=== PATIENT | male | born 1965 | race Caucasian/White ===

== ENCOUNTER 2022-05-10 16:49 | Observation (INO) | payer BC ==
[2022-05-10 19:06] VITALS: BMI 20.7
[2022-05-10] MEDS ORDERED: Ondansetron PF 4 MG/2 ML Vial IVP PRN (23:09)
[2022-05-10] MEDS ORDERED: Bisacodyl 5 MG TAB PO PRN (23:09)
[2022-05-10] MEDS ORDERED: Senokot S 8.6-50 MG TAB PO PRN (23:09)
[2022-05-10] MEDS ORDERED: HYDROcodone/Acetaminophen 5/325 mg Tablet PO PRN (23:09)
[2022-05-10] MEDS ORDERED: Acetaminophen 325 MG TAB PO PRN (23:09)
[2022-05-10] MEDS ORDERED: Ondansetron ODT 4 MG TAB PO PRN (23:09)
[2022-05-10 23:40] LABS: Hemoglobin A1c 4.3 % (4.0-6.0)
[2022-05-10 23:47] LABS: Troponin I Less than 0.010 ng/mL (< 0.028)
[2022-05-11] MEDS ORDERED: Lorazepam 1 MG TAB PO PRN (00:02)
[2022-05-11] MEDS ORDERED: chlordiazePOXIDE HCl 25 MG CAP PO SCH (00:15)
[2022-05-11] MEDS ORDERED: Electrolyte Replacement Protocol 1 EACH FS SCH (00:15)
[2022-05-11] MEDS ORDERED: Lisinopril 10 MG TAB PO SCH (00:30)
[2022-05-11] MEDS: Thiamine HCl 200 MG/2 ML VIAL SLOW IVP SCH ×2 (00:57→23:29)
[2022-05-11 02:42] LABS: #Eosinphils 0.3 thou/uL (0.0-0.7); #Lymphocytes 1.3 thou/uL (1.20-3.40); #Monocytes 0.7 thou/uL (0.11-0.59); #Neutrophils 3.5 thou/uL (1.40-6.50); %Basophils 0.7 % (0.0-1.0); %Eosinophils 5.1 % (0.0-10.0); %Lymphocytes 21.9 % (21.0-51.0); %Monocytes 12.5 % (0.0-10.0); %Neutrophils 59.9 % (42.0-75.0); Hemoglobin 15.3 g/dL (14.0-18.0); Mean Corpuscular HGB CONC 34.4 g/dL (32.0-36.0); Mean Corpuscular Hemoglobin 36.2 pg (27.0-31.0); Mean Platelet Volume 6.9 fL (7.4-10.4); Platelet Count 152 thou/uL (130-400); RBC Distribution Width 10.6 % (11.5-14.5); Red Blood Cell (RBC) Count 4.23 mill/uL (4.70-6.10); White Blood Cell (WBC) Count 5.8 thou/uL (4.8-10.8)
[2022-05-11 02:50] LABS: Bilirubin, Direct 0.7 mg/dL (0.1-0.3); Magnesium 1.8 mg/dL (1.6-2.6); Phosphorus 3.2 mg/dL (2.3-4.7)
[2022-05-11 02:53] LABS: Troponin I 0.013 ng/mL (< 0.028)
[2022-05-11 03:10] LABS: ALT (SGPT) 20 U/L (8-55); AST (SGOT) 39 U/L (5-34); Albumin 3.7 g/dL (3.5-5.0); Alkaline Phosphatase 75 U/L (40-110); Anion Gap 14 mmol/L (10-20); BUN (Urea Nitrogen) 6 mg/dL (8.4-25.7); Bilirubin, Total 4.1 mg/dL (0.2-1.2); Calc. Creatinine Clearance 99 mL/min (70-130); Calcium 8.7 mg/dL (7.8-10.44); Carbon Dioxide 25 mmol/L (22-29); Chloride 101 mmol/L (98-107); Cholesterol 175 mg/dl (< 200 Desired); Estimated GFR 105; Globulin 2.5 g/dL (2.4-3.5); Glucose 90 mg/dL (70-105); HDL Cholesterol 86 mg/dL (>60 Neg Risk); LDL Cholesterol, Calculated 76 mg/dL; Potassium 3.8 mmol/L (3.5-5.1); Protein, Total 6.2 g/dL (6.0-8.3); Sodium 136 mmol/L (136-145); Triglycerides 67 mg/dL (Less than 150)
[2022-05-11] MEDS ORDERED: Magnesium 2 GM/50 ML(in water) 2 GM in Premix Bag 1 BAG IVPB SCH (08:00)
[2022-05-11 08:13] LABS: Amphetamine Not Detected (NotDetected); Barbiturates Screen Not Detected (NotDetected); Benzodiazepine Screen Not Detected (NotDetected); Cocaine Metabolite Screen Not Detected (NotDetected); Methadone Not Detected (NotDetected); Methamphetamine Not Detected (NotDetected); Opiate Screen Not Detected (NotDetected); Oxycodone Screen Not Detected (NotDetected); Phencyclidine (PCP) Not Detected (NotDetected); THC/Cannabinoid Screen Not Detected (NotDetected); Tricyclic Screen Not Detected (NotDetected)
[2022-05-11] MEDS ORDERED: Enoxaparin Sodium 30 MG/0.3 ML SYRINGE SC SCH (09:00)
[2022-05-11] MEDS ORDERED: ADENOSINE 60 MG/20 ML VIAL ONE (09:21)
[2022-05-11 11:47] LABS: Syphilis Antibody Nonreactive (Nonreactive); Syphilis Antibody Index 0.05 S/CO (<1.00 Non-Reactive)
[2022-05-11] MEDS: Aspirin Chewable 81 MG TAB PO SCH (13:47)
[2022-05-11] MEDS: Folic Acid 1 MG TAB PO SCH (13:47)
[2022-05-11] MEDS: chlordiazePOXIDE HCl 25 MG CAP PO SCH ×3 (13:47→20:48)
[2022-05-11] MEDS: Lisinopril 10 MG TAB PO SCH (13:48)
[2022-05-11] MEDS: Enoxaparin Sodium 40 MG/0.4 ML SYRINGE SC SCH (13:50)
[2022-05-11] MEDS: Multivit, Therapeutic 1 TAB PO SCH (18:54)
[2022-05-12] MEDS ORDERED: Lorazepam 1 MG TAB PO PRN (00:02)
[2022-05-12 05:13] LABS: Magnesium 2.1 mg/dL (1.6-2.6)
[2022-05-12 07:52] VITALS: TEMP 98
[2022-05-12] MEDS: Folic Acid 1 MG TAB PO SCH (09:51)
[2022-05-12] MEDS: Enoxaparin Sodium 40 MG/0.4 ML SYRINGE SC SCH ×2 (09:51→10:11)
[2022-05-12] MEDS: Aspirin Chewable 81 MG TAB PO SCH (09:51)
[2022-05-12] MEDS: Multivit, Therapeutic 1 TAB PO SCH (09:51)
[2022-05-12] MEDS: chlordiazePOXIDE HCl 25 MG CAP PO SCH (09:52)
[2022-05-12 09:57] VITALS: BP 103/71
[2022-05-12] MEDS: Lisinopril 10 MG TAB PO SCH (09:57)
[2022-05-13] MEDS ORDERED: Lorazepam 1 MG TAB PO PRN (00:02)
[2022-05-13] MEDS ORDERED: FLU VACC QS2022-23(6MOS UP)/PF 60 MCG/0.5 ML SYRINGE IM ONE (09:00)
[2022-05-14] MEDS ORDERED: Lorazepam 0.5 MG TAB PO PRN (00:02)
[2022-05-14] MEDS ORDERED: Thiamine 100 MG TAB PO SCH (09:00)
== END 2022-05-12 12:32 | disposition home or self-care (01) ==
LOC: 2SW 16:49
PROVIDERS: ADMIT Internal Medicine; ATTEND Internal Medicine
DX: R07.89 Other chest pain (principal); I16.1 Hypertensive emergency; I10 Essential (primary) hypertension; E80.6 Other disorders of bilirubin metabolism
CPT/HCPCS: 36415; 76705; 78452; 80053; 80061; 80306; 82248; 83036; 83735; 84100; 84439; 84443; 84480; 84484; 85025; 86780; 93017; 94760; 96365; 96375; 96376; A9500; G0378; J0153; J1650; J3411; J3475; U0003; U0005